=== PATIENT | female | born 1995 | race Caucasian/White ===

== ENCOUNTER 2018-03-28 04:11 | Emergency (ER) | payer MEDICAID, SELFPAY ==
[2018-03-28 04:14] VITALS: BP 157/97; PULSE 70; RESP 18; TEMP 36.2; O2SAT 96
[2018-03-28 04:24] LABS: Bilirubin Negative (Negative); Blood Moderate (Negative); Clarity Sl Cloudy; Glucose Negative (Negative); Ketones Negative (Negative); Leukocyte Esterase Negative (Negative); Nitrite Negative (Negative); Specific Gravity >= 1.030 (1.005-1.025); Urobilinogen 0.2 EU/dL (Up TO 0.2)
--- NOTE | 2018-03-28 04:27 | W.ED.GENAD ---
Discharge Plan Disposition Patient Disposition: HOME Condition: Improving Discharge Details Chief Complaint: Nausea/Vomit/Diar Clinical Impression: Nausea and vomiting, Abdominal pain, epigastric ED Provider: Diogenes Soto [place] Meds and New Rx's Prescriptions: New sucralfate 1 gram tablet 1 gm PO QID Qty: 40 RF: 0 famotidine [Pepcid] 40 mg tablet 40 mg PO BID Qty: 20 RF: 0 ondansetron 4 mg tablet,disintegrating 4 mg PO QID PRN (Reason: nausea and vomiting) Qty: 20 RF: 0 Discharge Instructions Instructions: Acute Nausea and Vomiting (ED), Epigastric Pain (ED) Additional Instructions: Repeat laboratory studies continue to look good. White count has come down. Symptoms may be consistent with gastritis. You should stick with a clear liquid/bland diet. Avoid caffeine and tobacco. Medications as prescribed. Follow-up with primary care in 1 week. Return to ED if fever, worsening pain, persistent vomiting, bloody vomit, other concerns. Referrals: Primary Care Provider [Outside] Medical Decision Making Patient here with epigastric abdominal pain, nausea and vomiting. She is minimally tender in the epigastric region. There is no RUQ tenderness or guarding. Reports negative workup on Tuesday at [facility]. We have called to get those records. Will place IV and recheck laboratory studies. Will give Phenergan and Pepcid here. Hold off on pain medications. Records from [facility] obtain. Labs showed a leukocytosis only. They were otherwise unremarkable. CT scan was normal. She was discharged with prescriptions for Zofran and Percocet for undifferentiated abdominal pain, nausea and vomiting. Repeat laboratory studies tonight remain unremarkable. Her leukocytosis has come down and is now 14. Potassium is slightly low. She has received Phenergan and Pepcid and has been sleeping. When awakened states she still has nausea and pain. I have told her given her previous negative workup and unremarkable repeat labs as well as where her pain is with the associated nausea and vomiting is likely related to gastritis type symptoms. She is a smoker and does drink a lot of caffeine. I will give her some Carafate and reevaluate. Was sleeping and woke up with dry heaves again. Pain is gone. Given Zofran and now doing better but still with some dry heaves but asking for discharge. Will send out with prescriptions for Zofran, Pepcid and Carafate presuming possible gastritis. Will follow up with PCP. Return to ED if worse, unable to stop vomiting. Medical Records Medical records reviewed: Yes I reviewed the patient's medical records. Lab Data Lab results reviewed: Yes I reviewed the patient's lab results. HPI General Mode of arrival: ambulatory. Date/Time Provider Initiated Documentation: 03/28/18 04:17. Limitations to Documentation: no limitations. Information obtained by: patient and old records reviewed. HPI Narrative: Patient presents to ED with complaints of upper abdominal pain, nausea, vomiting that woke her around 2 AM. She reports symptoms started on Tuesday and she was seen at [facility]. She reports having labs and CAT scan done with negative results. She was given Zofran and Percocet which she has used over the weekend. She is now down here because of a class that she is taking related to work. She reports the pain and nausea is better during the day but worse at night. Eating and drinking does not change the pain. She had diarrhea which has since resolved over the weekend. There is no hematemesis or coffee-ground emesis. Pain does not radiate anywhere. She cannot describe the pain for me. She denies fever. She was unable to sleep and came here for evaluation. Related Data Home Medications Medication Instructions Recorded Confirmed famotidine [Pepcid] 40 mg PO BID #20 tab 03/28/18 ondansetron 4 mg PO QID PRN #20 tab 03/28/18 sucralfate 1 gm PO QID #40 tab 03/28/18 Previous Rx's Medication Instructions Recorded famotidine [Pepcid] 40 mg PO BID #20 tab 03/28/18 ondansetron 4 mg PO QID PRN #20 tab 03/28/18 sucralfate 1 gm PO QID #40 tab 03/28/18 Allergies Allergy/AdvReac Type Severity Reaction Status Date / Time No Known Allergies Allergy Unverified 03/28/18 04:20 General Stated Complaint: Nausea/Vomit/Diar MAURO: 3 Review of Systems Constitutional Denies chills, Denies fever(s), Denies headache(s) and Denies weakness Eyes Denies eye discharge and Denies eye pain ENT Denies otalgia, Denies headache(s), Denies neck pain and Denies sore throat Cardiovascular Denies chest pain, Denies syncope, Denies edema, Denies palpitations and Denies dyspnea Respiratory Denies cough and Denies dyspnea Gastrointestinal Reports abdominal pain, Denies coffee ground emesis, Denies diarrhea, Reports nausea, Reports vomiting and Denies hematemesis Genitourinary Denies hematuria, Denies dysuria and Denies pelvic pain Musculoskeletal Denies back pain, Denies myalgias, Denies arthralgias, Denies neck pain and Denies numbness Integumentary/Breasts Denies rash Neurologic Denies syncope, Denies headache(s), Denies focal weakness, Denies numbness and Denies weakness Endocrine Denies palpitations [facility] Social History Smoking/Tobacco Use Status: Current every day Exam Const General: cooperative and uncomfortable Nutritional Appearance: overweight Orientation: alert and oriented x3 HENMT Head: normocephalic and atraumatic Mouth: moist mucous membranes Eyes Sclera: sclerae normal Neck Neck: normal visual inspection, trachea midline and supple Resp Effort & Inspection: normal respiratory effort Auscultation: clear to auscultation bilaterally Cardio Rate: regular rate Rhythm: regular rhythm Heart Sounds: S1 normal and S2 normal GI Inspection: normal to inspection Palpation: soft, not firm, no guarding and tender in the epigastrum (mild); not in the RUQ and Malave's sign negative Auscultation: normal bowel sounds Skin General skin exam: no rashes or lesions noted Neuro General: alert, oriented x3, gait normal, no focal motor deficits and CN's II-XI intact bilaterally Extrem General: normal to inspection, full ROM and no clubbing, cyanosis or edema Course Vital Signs Temperature 97.2 F L 03/28/18 04:14 Pulse 70 03/28/18 04:14 Respiratory Rate 18 03/28/18 04:14 Blood Pressure 157/97 H 03/28/18 04:14 Pulse Oximetry 96 03/28/18 04:14 Temperature 97.2 F L 03/28/18 04:14 Temperature Source Skin 03/28/18 04:14 Pulse 70 03/28/18 04:14 Respiratory Rate 18 03/28/18 04:14 Respiratory Effort Non-Labored 03/28/18 04:19 Blood Pressure 157/97 H 03/28/18 04:14 Pulse Oximetry 96 03/28/18 04:14 Oxygen Delivery Method Room Air 03/28/18 04:14 Oxygen Flow Rate 0 03/28/18 04:14 Lab/Test Results Lab/Test Results: Laboratory Tests Range/Units 03/28/18 04:17 Urine Color (Yellow) Yellow Urine Clarity Sl cloudy Urine pH (5-8) 6.0 Ur Specific [place] (1.005-1.025) >= 1.030 H Urine Protein (Negative) mg/dL Negative Urine Ketones (Negative) mg/dL Negative Urine Blood (Negative) Moderate H Urine Nitrite (Negative) Negative Urine Bilirubin (Negative) Negative Urine Urobilinogen (Up TO 0.2) EU/dL 0.2 Ur Leukocyte Esterase (Negative) Negative Urine Glucose (Negative) mg/dL Negative
[2018-03-28 04:31] LABS: WBC 0-2 HPF (0-5)
[2018-03-28 04:32] LABS: Bacteria Moderate HPF (Negative); C & S Indicated? No/Sq. Contamination; Casts Negative LPF (Negative); Crystals Negative HPF (Negative); Epithelial Cells Many HPF (Negative); Mucus Negative (Negative); Other Cells Rare Yeast (Negative)
[2018-03-28] MEDS: Normal Saline 1,000 ML 1000 ML IV (04:35)
--- NOTE | 2018-03-28 04:36 | ED.GENADUL_ITS ---
Discharge Plan Disposition Patient Disposition: HOME Condition: Improving Discharge Details Chief Complaint: Nausea/Vomit/Diar Clinical Impression: Nausea and vomiting, Abdominal pain, epigastric ED Provider: Diogenes Soto [place] Meds and New Rx's Prescriptions: New sucralfate 1 gram tablet 1 gm PO QID Qty: 40 RF: 0 famotidine [Pepcid] 40 mg tablet 40 mg PO BID Qty: 20 RF: 0 ondansetron 4 mg tablet,disintegrating 4 mg PO QID PRN (Reason: nausea and vomiting) Qty: 20 RF: 0 Discharge Instructions Instructions: Acute Nausea and Vomiting (ED), Epigastric Pain (ED) Additional Instructions: Repeat laboratory studies continue to look good. White count has come down. Symptoms may be consistent with gastritis. You should stick with a clear liquid /bland diet. Avoid caffeine and tobacco. Medications as prescribed. Follow- up with primary care in 1 week. Return to ED if fever, worsening pain, persistent vomiting, bloody vomit, other concerns. Referrals: Primary Care Provider [Outside] Medical Decision Making Patient here with epigastric abdominal pain, nausea and vomiting. She is minimally tender in the epigastric region. There is no RUQ tenderness or guarding. Reports negative workup on Tuesday at [facility]. We have called to get those records. Will place IV and recheck laboratory studies. Will give Phenergan and Pepcid here. Hold off on pain medications. Records from [facility] obtain. Labs showed a leukocytosis only. They were otherwise unremarkable. CT scan was normal. She was discharged with prescriptions for Zofran and Percocet for undifferentiated abdominal pain, nausea and vomiting. Repeat laboratory studies tonight remain unremarkable. Her leukocytosis has come down and is now 14. Potassium is slightly low. She has received Phenergan and Pepcid and has been sleeping. When awakened states she still has nausea and pain. I have told her given her previous negative workup and unremarkable repeat labs as well as where her pain is with the associated nausea and vomiting is likely related to gastritis type symptoms. She is a smoker and does drink a lot of caffeine. I will give her some Carafate and reevaluate. Was sleeping and woke up with dry heaves again. Pain is gone. Given Zofran and now doing better but still with some dry heaves but asking for discharge. Will send out with prescriptions for Zofran, Pepcid and Carafate presuming possible gastritis. Will follow up with PCP. Return to ED if worse, unable to stop vomiting. Medical Records Medical records reviewed: Yes I reviewed the patient's medical records. Lab Data Lab results reviewed: Yes I reviewed the patient's lab results. HPI General Mode of arrival: ambulatory . Date/Time Provider Initiated Documentation: 03/28/18 04:17 . Limitations to Documentation: no limitations . Information obtained by: patient and old records reviewed . HPI Narrative: Patient presents to ED with complaints of upper abdominal pain, nausea, vomiting that woke her around 2 AM. She reports symptoms started on Tuesday and she was seen at [facility]. She reports having labs and CAT scan done with negative results. She was given Zofran and Percocet which she has used over the weekend. She is now down here because of a class that she is taking related to work. She reports the pain and nausea is better during the day but worse at night. Eating and drinking does not change the pain. She had diarrhea which has since resolved over the weekend. There is no hematemesis or coffee-ground emesis. Pain does not radiate anywhere. She cannot describe the pain for me. She denies fever. She was unable to sleep and came here for evaluation. Related Data Home Medications Medication Instructions Recorded Confirmed famotidine [Pepcid] 40 mg PO BID #20 tab 03/28/18 ondansetron 4 mg PO QID PRN #20 tab 03/28/18 sucralfate 1 gm PO QID #40 tab 03/28/18 Previous Rx's Medication Instructions Recorded famotidine [Pepcid] 40 mg PO BID #20 tab 03/28/18 ondansetron 4 mg PO QID PRN #20 tab 03/28/18 sucralfate 1 gm PO QID #40 tab 03/28/18 Allergies Allergy/AdvReac Type Severity Reaction Status Date / Time No Known Allergies Allergy Unverified 03/28/18 04:20 General Stated Complaint: Nausea/Vomit/Diar MAURO: 3 Review of Systems Constitutional Denies chills, Denies fever(s), Denies headache(s) and Denies weakness Eyes Denies eye discharge and Denies eye pain ENT Denies otalgia, Denies headache(s), Denies neck pain and Denies sore throat Cardiovascular Denies chest pain, Denies syncope, Denies edema, Denies palpitations and Denies dyspnea Respiratory Denies cough and Denies dyspnea Gastrointestinal Reports abdominal pain, Denies coffee ground emesis, Denies diarrhea, Reports nausea, Reports vomiting and Denies hematemesis Genitourinary Denies hematuria, Denies dysuria and Denies pelvic pain Musculoskeletal Denies back pain, Denies myalgias, Denies arthralgias, Denies neck pain and Denies numbness Integumentary/Breasts Denies rash Neurologic Denies syncope, Denies headache(s), Denies focal weakness, Denies numbness and Denies weakness Endocrine Denies palpitations [facility] Social History Smoking/Tobacco Use Status: Current every day Exam Const General: cooperative and uncomfortable Nutritional Appearance: overweight Orientation: alert and oriented x3 HENMT Head: normocephalic and atraumatic Mouth: moist mucous membranes Eyes Sclera: sclerae normal Neck Neck: normal visual inspection, trachea midline and supple Resp Effort & Inspection: normal respiratory effort Auscultation: clear to auscultation bilaterally Cardio Rate: regular rate Rhythm: regular rhythm Heart Sounds: S1 normal and S2 normal GI Inspection: normal to inspection Palpation: soft, not firm, no guarding and tender in the epigastrum (mild); not in the RUQ and Malave's sign negative Auscultation: normal bowel sounds Skin General skin exam: no rashes or lesions noted Neuro General: alert, oriented x3, gait normal, no focal motor deficits and CN's II- XI intact bilaterally Extrem General: normal to inspection, full ROM and no clubbing, cyanosis or edema Course Vital Signs Temperature 97.2 F L 03/28/18 04:14 Pulse 70 03/28/18 04:14 Respiratory Rate 18 03/28/18 04:14 Blood Pressure 157/97 H 03/28/18 04:14 Pulse Oximetry 96 03/28/18 04:14 Temperature 97.2 F L 03/28/18 04:14 Temperature Source Skin 03/28/18 04:14 Pulse 70 03/28/18 04:14 Respiratory Rate 18 03/28/18 04:14 Respiratory Effort Non-Labored 03/28/18 04:19 Blood Pressure 157/97 H 03/28/18 04:14 Pulse Oximetry 96 03/28/18 04:14 Oxygen Delivery Method Room Air 03/28/18 04:14 Oxygen Flow Rate 0 03/28/18 04:14 Lab/Test Results Lab/Test Results: Laboratory Tests Range/Units 03/28/18 04:17 Urine Color (Yellow) Yellow Urine Clarity Sl cloudy Urine pH (5-8) 6.0 Ur Specific [place] (1.005-1.025) >= 1.030 H Urine Protein (Negative) mg/dL Negative Urine Ketones (Negative) mg/dL Negative Urine Blood (Negative) Moderate H Urine Nitrite (Negative) Negative Urine Bilirubin (Negative) Negative Urine Urobilinogen (Up TO 0.2) EU/dL 0.2 Ur Leukocyte Esterase (Negative) Negative Urine Glucose (Negative) mg/dL Negative
[2018-03-28 04:41] LABS: Abs Immature Grans 0.04 k/cumm (0.0-0.09); Absolute Monocyte Count 0.87 k/cumm (0.11-0.7); Basophils % 0.1; Eosinophils % 0.6; HCT 40.5 % (36.0-46.0); HGB 14.4 g/dL (12.0-15.5); Immature Grans % 0.3; Lymphocytes % 14.5; Mean Corp. HGB Concentration 35.6 g/dL (32.0-36.0); Mean Corpuscular Hemoglobin 31.5 pg (27.0-33.0); Mean Corpuscular Volume 88.6 fL (80-95); Mean Platelet Volume 9.3 fL (8.0-11.0); Monocytes % 6.2; Neutrophils % 78.3; Platelet Count 354 x1000/uL (130-400); RBC 4.57 m/cumm (4.00-5.20); RBC Distribution Width 12.1 % (11.7-14.6); White Blood Cell Count 14.09 k/cumm (4.4-10.8)
[2018-03-28 04:42] LABS: Absolute Basophil Count 0.01 k/cumm (0.0-0.2); Absolute Eosinophil Count 0.08 k/cumm (0.0-0.7); Absolute Lymphocyte Count 2.04 k/cumm (1.2-3.4); Absolute Neutrophil Count 11.03 k/cumm (1.2-6.7)
[2018-03-28] MEDS: FAMOTIDINE 20 MG/50 ML BAG 200 MG IVPB (04:49)
[2018-03-28 04:54] LABS: ALT 62 U/L (12-78); AST 20 U/L (15-37); Alkaline Phosphatase 71 U/L (46-116); Anion Gap 11.3 mmol/L (3-11); BUN 13 mg/dL (7-18); Bilirubin, Total 0.6 mg/dL (0.2-1.0); CO2 26.7 mmol/L (21.0-32.0); CREATININE 0.89 mg/dL (0.55-1.02); Chloride 101 mmol/L (98-107); Glucose 97 mg/dL (70-100); Lipase 78 U/L (73-393); Potassium 3.4 mmol/L (3.5-5.1); Sodium 139 mmol/L (136-145); Total Protein 7.2 g/dL (6.4-8.2)
[2018-03-28] MEDS: Sucralfate 1 GM TAB PO (05:30)
[2018-03-28 06:36] VITALS: BP 130/68; PULSE 80; RESP 18; TEMP 36.7; O2SAT 99
[2018-03-28] MEDS: Ondansetron 4 MG/2 ML VIAL IVP (06:43)
[2018-03-28] MEDS: Ondansetron O.D.T. 4 MG TABEF PO (07:25)
[2018-03-28 07:30] VITALS: BP 130/98; PULSE 71; RESP 16; TEMP 36.7; O2SAT 97
== END 2018-03-28 07:35 | disposition home or self-care (01) ==
PROVIDERS: Emergency Provider Emergency Medicine
DX: R11.2 Nausea with vomiting, unspecified (principal); R10.13 Epigastric pain
CPT/HCPCS: 36415; 80053; 81025; 83690; 96361; 96374; 96375; 99284; 81003; 81015; 85025

== ENCOUNTER 2018-07-31 10:21 | Outpatient (REF) | payer MEDICAID, SELFPAY | END 2018-07-31 10:41 | LOC: LBN 10:21 | PROVIDERS: Visit Provider Urology | DX: R35.0 Frequency of micturition (principal) | CPT/HCPCS: 87086 ==

== ENCOUNTER 2021-09-07 08:57 | Emergency (ER) | payer BC, SELFPAY ==
--- NOTE | 2021-09-07 09:00 | RT.EKG_ITS ---
APPROVED REPORT Exam: Resting ECG Reason for Exam: chest pain Patient Location: E HR:97 bpm ECG Measurements Heart Rate 97 AXIS [place] 141 P 58 QRSd 86 QRS 71 QT 338 T 5 QTc 429 Conclusion Sinus rhythm...normal P axis, V-rate 60- 99
[2021-09-07 09:06] VITALS: BP 136/84; PULSE 108; RESP 18; TEMP 36.8; O2SAT 100
--- NOTE | 2021-09-07 09:15 | DI.US_ITS ---
Exam(s) US LOWER EXTREMITY VENOUS LT EXAM: US LOWER EXTREMITY VENOUS LT CLINICAL HISTORY: left calf pain, swelling TECHNIQUE: Left lower extremity venous ultrasound performed using grayscale, color-flow, and spectra l Doppler analysis. COMPARISON: No exams were available for comparison FINDINGS: The left common femoral, femoral and popliteal veins demonstrate normal compressibility, augmentation , and color Doppler. The posterior tibial veins are patent. The saphenofemoral junction is unremarka ble. There is no evidence of a Brewer cyst. The soft tissues are unremarkable. IMPRESSION: No DVT. DATA REPOSITORY:
--- NOTE | 2021-09-07 09:24 | W.ED.GENAD ---
Discharge Plan Disposition Patient Disposition: HOME Condition: Stable Discharge Details Clinical Impression: Swelling of left lower extremity, Calf pain Primary Care Provider: Ayaz Rizo ED Provider: Kvng Flores Home Meds and New Rx's Prescriptions: Continued dextroamphetamine-amphetamine 20 mg tablet 20 mg PO BID MDD 40mg Qty: 56 0RF Rx Instructions: administer doses at least 4-6 hours apart lamotrigine [Lamictal] 25 mg tablet 50 mg PO DAILY Qty: 60 0RF ziprasidone HCl 20 mg capsule 20 mg PO BID Qty: 60 1RF Rx Instructions: give with food (meal/snack) sertraline 100 mg tablet 100 mg PO DAILY Qty: 90 3RF imipramine HCl 50 mg tablet 50 mg PO BID-TID Qty: 90 0RF Discharge Instructions Additional Instructions: your ultrasound did not show concerning findings and your blood work also did not show any concerning findings follow up with your psychiatrist as soon as possible if you feel more ill, have severe worsening pain or fevers return to the emergency department Medical Decision Making 25 yo female with hx of add, mood disorder, interstital cystitis, comes in with complaints of a raspy voice and also left leg feels swollen. SHe also has noted intermittent left anterior chest pain for 3 days that comes and goes. She went to [place] for a week and got back yesterday. She went to work today and was told to come here when she got to work. She arrives stable speaking in full sentences in no distress. She denies fevers, chills, dyspnea, headache. She states she started ziprasidone a week or so ago and lamotrigine a month ago. She denies any rashes. She has no noticeable swelling of her leg on exam but has tenderness to the left calf. No abdominal tenderness, no visible abnormalities of the chest or palpable deformities. Clear lungs, normal posterior pharynx, midline uvula, no pain over the hyoid or neck swelling or restricted neck movement. Given the recent travel and leg pain will obtain u/s to evaluate for dvt. Her chest pain seems musculoskeleta, doesn't radiate and not associated with movement or exertion so doubt acs, heart score is less than 3, will obtain troponin. Will also check d dimer as her HR is 108. No findings on exam to suggest rpa, epiglotitis or pharyngitis and no mucous membrane lesions to suggest sjs/ten. Given lack of rash and reassuring exam doubt anaphylaxis. pt's labs and u/s unremarkable and she remains stable, no other changes on exam. Discussed with her results and discussed lamotrigine which she feels is causing her symptoms. I advised she needs to discuss stopping and starting a new med like this with her psychiatrist as there is no evidence of anaphylaxis or even mild allergic reaction. Return precautions given Differential Diagnosis Differential Diagnosis: dvt, anxiety, nstemi Medical Records Medical records reviewed: Yes I reviewed the patient's medical records. Lab Data Lab results reviewed: Yes I reviewed the patient's lab results. ECG Data Attestation: I personally reviewed and interpreted this ECG (s) as follows: Prior ECG tracings: not available for review Interpretation: sinus rhythm, rate of 97, no acute st t wave ischemic findings HPI General Mode of arrival: ambulatory. Date/Time Provider Initiated Documentation: 09/07/21 08:59. Limitations to Documentation: no limitations. Information obtained by: patient. History of Present Illness 25 year old F presents to the emergency department with the chief complaint of left swelling, described as moderate, Patient started experiencing this day(s) (3) and it has been constant. improves with No relieving factors improve symptom(s), No exacerbating factors reported . Patient notes chest pain. Patient did receive the following treatments prior to arrival, none Related Data Home Medications Medication Instructions Recorded Confirmed sertraline 100 mg tablet 100 mg PO DAILY #90 tab 07/17/21 09/07/21 dextroamphetamine-amphetamine 20 20 mg PO BID #56 tab MDD 40mg 08/10/21 09/07/21 mg tablet imipramine HCl 50 mg tablet 50 mg PO BID-TID #90 tab 08/24/21 09/07/21 lamotrigine 25 mg tablet (Lamictal) 50 mg PO DAILY #60 tab 08/27/21 09/07/21 ziprasidone HCl 20 mg capsule 20 mg PO BID #60 cap 08/27/21 09/07/21 Previous Rx's Medication Instructions Recorded sertraline 100 mg tablet 100 mg PO DAILY #90 tab 07/17/21 dextroamphetamine-amphetamine 20 20 mg PO BID #56 tab MDD 40mg 08/10/21 mg tablet imipramine HCl 50 mg tablet 50 mg PO BID-TID #90 tab 08/24/21 lamotrigine 25 mg tablet (Lamictal) 50 mg PO DAILY #60 tab 08/27/21 ziprasidone HCl 20 mg capsule 20 mg PO BID #60 cap 08/27/21 Allergies Allergy/AdvReac Type Severity Reaction Status Date / Time No Known Allergies Allergy Verified 09/07/21 09:11 General Stated Complaint: Allergic MAURO: 3 Review of Systems All systems reviewed & are unremarkable except as noted in HPI and below Constitutional Constitutional: Denies chills, Denies fever(s) and Denies weakness Eyes Eyes: Denies loss of vision Cardiovascular Cardiovascular: Denies dyspnea Respiratory Respiratory: Denies cough and Denies dyspnea Gastrointestinal Gastrointestinal: Denies abdominal pain, Denies nausea and Denies vomiting Genitourinary Genitourinary: Denies dysuria Musculoskeletal Musculoskeletal: Denies joint swelling Integumentary/Breasts Skin/Breast: Denies rash Neurologic Neurologic: Denies loss of vision and Denies weakness PFSH All Active Problems (Updated 09/07/21 @ 10:46 by Kvng Flores MD) Swelling of left lower extremity (Acute) Calf pain (Acute) Mood disorder (Acute) ADD (attention deficit disorder) (Acute) Anxiety (Chronic) Tobacco abuse (Acute) Currently 1/2 daily Bladder dysfunction (Acute) over active Interstitial cystitis (Acute) Medical History Anxiety Restlessness Family History (Updated 03/09/21 @ 10:22 by Gilda Rabago) Mother Diabetes Hyperlipidemia Father Substance use disorder Sister No problems noted. Maternal Grandfather , 60 Heart disease Paternal Grandfather No problems noted. Maternal Grandmother , 73 Urinary bladder cancer Paternal Grandmother No problems noted. Social History (Updated 03/09/21 @ 10:20 by Gilda Rabago) Smoking/Tobacco Use Status: Current every day Tobacco Type: cigarettes Tobacco: How many years used: 10 Quit status: not considering quitting Second Hand Exposure: Yes Smoking risk assessment performed?: Yes Alcohol Intake: current Alcohol Intake frequency: holidays/special occasions only Alcohol type: beer, wine and hard liquor Drug use: Occasionally Substance use type: marijuana Caregiver/Support person: No Household members: family Housing: house Communication Needs: None Do you need help understanding health information?: Never Pets and animals: Yes Pets and animals: cat(s) and dog(s) Sexually active: Yes Do you think of yourself as: straight/heterosexual Current gender identity: female What is your relationship status?: never How often do you talk on the phone with friends or family?: decline to answer How often do you get together with friends or relatives?: decline to answer How often do you attend mormonism or holiness services?: decline to answer Do you belong to any clubs or organized social groups?: decline to answer Panel score (0-1 are the most socially isolated patients): 0 What type of physical activity do you participate in: none Duration: < 15 minutes/day Special graeme needs: No Seatbelt use: always Helmet use: Yes Helmet use: always Drive 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 Do you feel safe in your relationship?: Yes Exam Const General: no acute distress Orientation: alert HENMT Head: normal to inspection Ears: external ears normal General nose exam: external nose normal Mouth: moist mucous membranes Eyes General: appearance normal, both eyes and all related structures Neck Neck: normal visual inspection Resp Effort & Inspection: normal respiratory effort and able to speak in complete sentences Cardio Rate: regular rate Skin General skin exam: no rashes or lesions noted Neuro General: patient alert and patient oriented x3 Extrem General: normal to inspection Psych Mental Status: mental status grossly normal Course Vital Signs Vital signs: Vital Signs Temperature 36.8 C 09/07/21 09:06 Pulse 108 H 09/07/21 09:06 Respiratory Rate 18 09/07/21 09:06 Blood Pressure 136/84 09/07/21 09:06 Pulse Oximetry 100 09/07/21 09:06 Temperature 36.8 C 09/07/21 09:06 Temperature Source Skin 09/07/21 09:06 Pulse 108 H 09/07/21 09:06 Respiratory Rate 18 09/07/21 09:06 Respiratory Effort 09/07/21 09:17 Respiratory Pattern Normal 09/07/21 09:17 Blood Pressure 136/84 09/07/21 09:06 Blood Pressure Position Sitting 09/07/21 09:06 Pulse Oximetry 100 09/07/21 09:06 Oxygen Delivery Method Room Air 09/07/21 09:06 Oxygen Flow Rate 0 09/07/21 09:06 Pain Level 8 09/07/21 09:06 PAWSS Have you Been Recently Intoxicated or Drunk Within the Last 30 days?: No Have you Ever Experienced Previous Episodes of Alcohol Withdrawal?: No Have you ever Experienced Withdrawal Seizures?: No Have you ever Experienced Delirium Tremens(DT)s?: No Have you ever undergone Alcohol Rehabilitation Treatment (i.e, inpt ot outpatient treatment programs)?: No Have you ever Experienced Blackouts?: No Have you ever Combined Alcohol with other Downers within the last 90 days?: No Have you ever Combined Alcohol with any other Substance of Abuse during the last 90 days?: No Positive Blood Alcohol level on Presentation? [PCS.BAL]: No Evidence of Increased Autonomic Activity (i.e. HR>120, tremor, sweating, agitation, nausea)?: No Result: 0
[2021-09-07 09:41] LABS: Abs Immature Grans 0.06 10^3/uL (0.0-0.06); Absolute Basophil Count 0.04 10^3/uL (0.0-0.2); Absolute Eosinophil Count 0.13 10^3/uL (0.0-0.7); Absolute Lymphocyte Count 2.07 10^3/uL (1.2-3.4); Absolute Neutrophil Count 9.05 10^3/uL (1.2-6.7); Basophils % 0.3; Eosinophils % 1.1; HCT 35.3 % (36.0-46.0); HGB 11.5 g/dL (11.2-15.7); Immature Grans % 0.5; Lymphocytes % 17.2; MCH 30.7 pg (27.0-33.0); MCHC 32.6 % (32.0-36.0); MCV 94.4 fL (80-95); MPV 8.9 fL (8.0-11.0); Monocytes % 5.8; Neutrophils % 75.1; Platelet Count 291 10^3/uL (130-400); RBC 3.74 10^6/uL (3.93-5.22); RDW 13.2 % (11.7-14.6); RDW-SD 45.2 fL; WBC 12.05 10^3/uL (4.4-10.8)
[2021-09-07 09:48] LABS: Bilirubin Negative (Negative); Blood Trace-lysed (Negative); Clarity Clear (Clear); Glucose Negative (Negative); Ketones Negative (Negative); Leukocyte Esterase Negative (Negative); Nitrite Negative (Negative); Specific Gravity 1.015 (1.005-1.025); Urobilinogen 0.2 EU/dL (Up TO 0.2)
[2021-09-07 09:57] LABS: Creatine Kinase 120 U/L (26-192); Lipase 32 U/L (73-393); Magnesium 2.1 mg/dL (1.8-2.4); Troponin I < 50 ng/L (<or=60)
[2021-09-07 09:57] LABS: Bacteria Negative HPF (Negative); C & S Indicated? No; Casts Negative LPF (Negative); Crystals Negative HPF (Negative); Epithelial Cells Rare HPF (Negative); Mucus Negative (Negative); RBC 0-2 HPF (0-2); WBC Negative HPF (0-5)
[2021-09-07 10:22] LABS: D-Dimer 325 ng/mlFEU (<500)
[2021-09-07 10:46] VITALS: BP 118/67; PULSE 74; RESP 16; TEMP 36.8; O2SAT 100
== END 2021-09-07 10:56 | disposition home or self-care (01) ==
PROVIDERS: Emergency Provider Emergency Medicine; PCP Nurse Practitioner Family
DX: M79.89 Other specified soft tissue disorders (principal); M79.662 Pain in left lower leg; R07.9 Chest pain, unspecified
CPT/HCPCS: 36415; 81025; 82550; 83690; 93005; 99284; 81003; 81015; 83735; 84484; 85025; 85379; 93010; 93971; 99283

== ENCOUNTER 2021-10-06 13:58 | Emergency (ER) | payer BC, SELFPAY ==
[2021-10-06 14:03] VITALS: BP 123/70; PULSE 108; RESP 16; TEMP 36.7; O2SAT 99
[2021-10-06 14:45] LABS: Bilirubin Negative (Negative); Blood Trace-intact (Negative); Clarity Clear (Clear); Glucose Negative (Negative); Ketones Negative (Negative); Leukocyte Esterase Negative (Negative); Nitrite Negative (Negative); Specific Gravity 1.015 (1.005-1.025); Urobilinogen 0.2 EU/dL (Up TO 0.2)
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
--- NOTE | 2021-10-06 14:45 | DI.CT_ITS ---
Exam(s) CT HEAD CERVICAL SPINE WO EXAM: CT HEAD CERVICAL SPINE WO COMPARISON: No exams were available for comparison FINDINGS: CT examination of the cervical spine was performed without contrast administration. There is no evidence of acute cervical spine fracture or dislocation. Intervertebral disc spaces are well maintained. Tracheolaryngeal structures appear intact. No cervical mass or adenopathy. Noncontrast cranial CT was performed. Ventricular system is normal in appearance. No evidence of acute intracranial hemorrhage, mass effect, or midline shift. No calvarial fracture. The orbital and temporal bone structures appear intact. Visualized mastoid air cells and paranasal sinuses appear clear. IMPRESSION: No evidence of acute cervical spine injury. No evidence of acute intracranial injury. RADIATION DOSE DELIVERED: 992.42mGy.cm Total DLP 992.42mGy.cm Total DLP !Error CTDIvol DATA REPOSITORY: All CT scans at this facility are submitted to the National Radiology Data Registry (NRDR) Dose Index Registry (DIR) with the [employer] ([employer]). RADIATION OPTIMIZATION: All CT scans at this facility use at least one of these dose optimization te chniques: automated exposure control; mA and/or kV adjustment per patient size (includes targeted exa ms where dose is matched to clinical indication); or iterative reconstruction.
[2021-10-06 14:53] LABS: Bacteria Rare HPF (Negative); C & S Indicated? No; Casts Negative LPF (Negative); Crystals Negative HPF (Negative); Epithelial Cells Few HPF (Negative); Mucus Negative (Negative); RBC 0-2 HPF (0-2); WBC Negative HPF (0-5)
[2021-10-06] MEDS: Normal Saline 1,000 ML 1000 ML IV (15:36)
[2021-10-06] MEDS: MORPHine 10 MG/ML VIAL 4 MG IVP (15:36)
[2021-10-06] MEDS: Ondansetron 4 MG/2 ML VIAL IVP (15:37)
[2021-10-06 15:52] VITALS: RESP 19; O2SAT 99
[2021-10-06 16:13] LABS: Abs Immature Grans 0.03 10^3/uL (0.0-0.06); Absolute Eosinophil Count 0.12 10^3/uL (0.0-0.7); Absolute Lymphocyte Count 3.09 10^3/uL (1.2-3.4); Absolute Monocyte Count 0.75 10^3/uL (0.1-0.8); Basophils % 0.4; Eosinophils % 1.1; HCT 39.6 % (36.0-46.0); HGB 13.3 g/dL (11.2-15.7); Immature Grans % 0.3; Lymphocytes % 27.4; MCHC 33.6 % (32.0-36.0); MCV 92 fL (80-95); MPV 9.1 fL (8.0-11.0); Monocytes % 6.7; Neutrophils % 64.1; Platelet Count 321 10^3/uL (130-400); RBC 4.29 10^6/uL (3.93-5.22); RDW 12.6 % (11.7-14.6); RDW-SD 42.3 fL; WBC 11.26 10^3/uL (4.4-10.8)
[2021-10-06 16:25] LABS: ALT 30 U/L (14-59); AST 12 U/L (15-37); Albumin 3.6 g/dL (3.4-5.0); Alkaline Phosphatase 92 U/L (46-116); Anion Gap 3.9 mmol/L (3-11); BUN 14 mg/dL (7-18); Bilirubin, Total 0.1 mg/dL (0.2-1.0); CO2 32.1 mmol/L (21.0-32.0); CREATININE 0.8 mg/dL (0.55-1.02); Calcium 8.9 mg/dL (8.5-10.1); Chloride 104 mmol/L (98-107); Glucose 99 mg/dL (74-106); Potassium 3.9 mmol/L (3.5-5.1); Sodium 140 mmol/L (136-145); Total Protein 6.8 g/dL (6.4-8.2)
[2021-10-06 16:31] LABS: Absolute Basophil Count 0.05 10^3/uL (0.0-0.2); Absolute Neutrophil Count 7.22 10^3/uL (1.2-6.7)
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
[2021-10-06 17:58] VITALS: BP 120/61; PULSE 70; RESP 18; O2SAT 100
== END 2021-10-06 17:59 | disposition home or self-care (01) ==
PROVIDERS: Emergency Provider Nurse Practitioner Family; PCP Nurse Practitioner Family
DX: S16.1XXA Strain of muscle, fascia and tendon at neck level, initial encounter (principal); R10.9 Unspecified abdominal pain; V49.49XA Driver injured in collision with other motor vehicles in traffic accident, initial encounter
CPT/HCPCS: 36415; 71250; 80053; 81025; 96361; 96374; 96375; 99284; 70450; 72125; 74176; 81003; 81015; 85025; J2270; J2405

== ENCOUNTER 2022-01-06 10:16 | Outpatient (CLI) | payer BC, SELFPAY ==
--- NOTE | 2022-01-06 10:15 | RT.EKG_ITS ---
APPROVED REPORT Exam: Resting ECG Reason for Exam: chest pain Patient Location: O HR:98 bpm ECG Measurements Heart Rate 98 AXIS WV 134 P 71 QRSd 91 QRS 81 QT 355 T 14 QTc 454 Conclusion Sinus rhythm...normal P axis, V-rate 50- 99 Normal Electrocardiogram
== END 2022-01-06 10:17 | disposition home or self-care (01) ==
LOC: DI.CM 10:17
PROVIDERS: PCP Nurse Practitioner Family; Visit Provider Nurse Practitioner Family
DX: R07.9 Chest pain, unspecified (principal)
CPT/HCPCS: 93010

== ENCOUNTER 2022-02-12 16:30 | Outpatient (REF) | payer BC, SELFPAY ==
--- NOTE | 2022-02-12 15:30 | PAPFT_PTH ---
PATIENT: Zina Hartmann LOC: [facility] U#:[id number] AGE/SX: 26/F ROOM: RE02/12/[address]: Charlette Cardona MD : [id number] BED: DIS: 02/12/2022 SPEC #: [id number] RECD: 02/12/22 17:29 STATUS: MELLISA REMaddie #: [id number] JEREMIAH: 02/12/22 15:[address]: Charlette Cardona DEPT: [facility] Cytology RECD BY: Kimmie Parker ENTERED: 02/12/22 17:30 SP TYPE: PAPFT OTHR DR: Ayaz Rizo, H[place] Tissues: 1 - CX/ENDOCX FOR PAP SMEARS Procedures: PAP THIN PREP/UVM Screening Comments: [id number] (CHLAMYDIA/GC)
[2022-02-15 15:41] LABS: Chlamydia Result Negative (Negative); GC Result Negative (Negative)
== END 2022-02-12 16:31 | disposition home or self-care (01) ==
LOC: LBN 16:30
PROVIDERS: PCP Nurse Practitioner Family; Visit Provider Obstetrics & Gynecology
DX: Z12.4 Encounter for screening for malignant neoplasm of cervix (principal); Z11.3 Encounter for screening for infections with a predominantly sexual mode of transmission
CPT/HCPCS: 87491; 87591; 88142; 87624

== ENCOUNTER 2022-03-15 13:43 | Outpatient (REF) | payer BC, SELFPAY ==
[2022-03-17 11:28] LABS: COVID-19 RT-PCR UVMMC Result Negative (Negative)
== END 2022-03-15 13:44 | disposition home or self-care (01) ==
LOC: LBN 13:43
PROVIDERS: Visit Provider Nurse Practitioner Family
DX: Z20.822 Contact with and (suspected) exposure to COVID-19 (principal)
CPT/HCPCS: U0003

== ENCOUNTER 2022-05-06 02:22 | Outpatient (CLI) | payer BC, SELFPAY ==
[2022-05-06 16:54] LABS: HGB 14.8 g/dL (11.2-15.7); MCH 30.6 pg (27.0-33.0); MCHC 33.6 % (32.0-36.0); MCV 91 fL (80-95); MPV 9.1 fL (8.0-11.0); Platelet Count 403 10^3/uL (130-400); RBC 4.83 10^6/uL (3.93-5.22); RDW 11.9 % (11.7-14.6); RDW-SD 39.8 fL; WBC 15.72 10^3/uL (4.4-10.8)
[2022-05-06 17:06] LABS: Hemoglobin A1C 5.2 % (<5.7)
[2022-05-06 17:50] LABS: Calculated LDL 125 mg/dL (<100); Cholesterol 212 mg/dL (<200); HDL Cholesterol 77 mg/dL (40-60); TSH (W/Ref FT4) 0.53 uIU/mL (0.36-3.74); Triglyceride 54 mg/dL (<150)
== END 2022-05-06 02:23 | disposition home or self-care (01) ==
PROVIDERS: PCP Nurse Practitioner Family; Visit Provider Nurse Practitioner Family
DX: Z13.1 Encounter for screening for diabetes mellitus (principal); Z13.220 Encounter for screening for lipoid disorders; R53.83 Other fatigue
CPT/HCPCS: 36415; 80061; 85027; 83036; 84443

== ENCOUNTER → 2022-05-07 10:35 | Outpatient (CLI) | payer BC, SELFPAY ==
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
== END ==
PROVIDERS: PCP Nurse Practitioner Family; Visit Provider Nurse Practitioner Family
DX: M54.59 Other low back pain (principal)
CPT/HCPCS: 72110

== ENCOUNTER 2022-08-18 16:48 | Outpatient (CLI) | payer BC, SELFPAY ==
[2022-08-18 16:58] LABS: Abs Immature Grans 0.01 10^3/uL (0.0-0.06); Absolute Basophil Count 0.04 10^3/uL (0.0-0.2); Absolute Eosinophil Count 0.16 10^3/uL (0.0-0.7); Basophils % 0.4; Eosinophils % 1.6; HCT 40.1 % (36.0-46.0); HGB 13.6 g/dL (11.2-15.7); Immature Grans % 0.1; Lymphocytes % 28.3; MCH 30.2 pg (27.0-33.0); MCHC 33.9 % (32.0-36.0); MCV 89 fL (80-95); MPV 9.1 fL (8.0-11.0); Monocytes % 9.1; Neutrophils % 60.5; Platelet Count 372 10^3/uL (130-400); RBC 4.51 10^6/uL (3.93-5.22); RDW-SD 38.5 fL; WBC 9.91 10^3/uL (4.4-10.8)
[2022-08-18 17:10] LABS: *AMPHETAMINES SCREEN URINE Negative (Negative); *BARBITURATES SCREEN URINE Negative (Negative); *BENZODIAZEPINES SCREEN URINE Negative (Negative); Cannabinoids THC Positive (Negative); Cocaine Screen,Urine Negative (Negative); METHADONE URINE SCREEN Negative (Negative); OPIATES URINE SCREEN Negative (Negative)
[2022-08-18 17:11] LABS: Tricyclic Antidepressants Negative (Negative)
[2022-08-18 17:38] LABS: ALT 40 U/L (14-59); AST 18 U/L (15-37); Albumin 4.1 g/dL (3.4-5.0); Alkaline Phosphatase 63 U/L (46-116); Anion Gap 10.1 mmol/L (3-11); BUN 21 mg/dL (7-18); Bilirubin, Total 0.3 mg/dL (0.2-1.0); CO2 27.9 mmol/L (21.0-32.0); CREATININE 0.9 mg/dL (0.55-1.02); Calcium 9.3 mg/dL (8.5-10.1); Chloride 103 mmol/L (98-107); Estimated GFR 90.42 (mL/min/1.73m2); Glucose 83 mg/dL (74-106); Sodium 141 mmol/L (136-145); TSH 1.94 uIU/mL (0.36-3.74); Total Protein 7.1 g/dL (6.4-8.2); Vitamin B12 538 pg/mL (193-986)
[2022-08-18 18:09] LABS: Vitamin D 25 Total 31.3 ng/mL (30-100)
[2022-08-25 21:26] LABS: Fentanyl Interpretation Positive.; Fentanyl by LC-MS/MS Not Detected; Norfentanyl by LC-MS/MS 6.2 ng/mL
== END 2022-08-18 16:49 | disposition home or self-care (01) ==
LOC: LBO 16:48
PROVIDERS: PCP Nurse Practitioner Family; Visit Provider Nurse Practitioner Psychiatric/Mental Health
DX: R41.82 Altered mental status, unspecified (principal)
CPT/HCPCS: 36415; 80053; 80307; 82306; 80354; 82607; 84443; 85025

== ENCOUNTER 2022-09-23 08:20 | Emergency (ER) | payer BC, SELFPAY ==
[2022-09-23 08:24] VITALS: BP 117/57; PULSE 90; RESP 15; TEMP 37.3; O2SAT 100
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
--- NOTE | 2022-09-23 08:44 | NUR.NOTE ---
Nursing Note: Dr Juanita Spain at pt's bedside.
--- NOTE | 2022-09-23 08:45 | DI.US_ITS ---
Exam(s) US LOWER EXTREMITY VENOUS RT EXAM: US LOWER EXTREMITY VENOUS RT CLINICAL HISTORY: right leg/foot pain, r/o dvt TECHNIQUE: Grayscale, color, and doppler imaging of the deep venous system of the right lower extrem ity was performed. COMPARISON: US US LOWER EXTREMITY VENOUS LT from 09/07/2021 FINDINGS: There is no evidence of intraluminal thrombus and there is normal compression and augmentation demons trated within the common femoral vein, femoral vein, and popliteal vein. In the ipsilateral calf the interrogated veins also exhibit normal compression/ augmentation properti es. The ipsilateral saphenofemoral junction is patent. IMPRESSION: 1. No evidence of DVT in the right lower extremity. DATA REPOSITORY:
[2022-09-23] MEDS: Ibuprofen 600 MG TAB PO (08:56)
[2022-09-23] MEDS: Acetaminophen 500 MG TAB 1000 MG PO (08:56)
[2022-09-23] MEDS: predniSONE 20 MG TAB 40 MG PO (08:57)
--- NOTE | 2022-09-23 10:00 | DI.RAD_ITS ---
Exam(s) XR TIB/FIB RT EXAM: XR TIB/FIB RT CLINICAL HISTORY: twisted right leg, r/o fx. TECHNIQUE: 2D digital imaging was performed. COMPARISON: No exams were available for comparison FINDINGS: Two views No evidence of fracture of the tibia and fibula. No osseous lesions. No radiopaque foreign body. B one density normal. IMPRESSION: No significant osseous findings in tibia and fibula. DATA REPOSITORY: RADIATION DOSE DELIVERED:
--- NOTE | 2022-09-23 10:00 | DI.RAD_ITS ---
Exam(s) XR KNEE RT 4V AP,LAT,MARIELA,PAT EXAM: XR KNEE RT 4V AP,LAT,MARIELA,PAT CLINICAL HISTORY: running and twisted leg, r/o fx. TECHNIQUE: 2D digital imaging was performed. COMPARISON: No exams were available for comparison FINDINGS: 3 views No evidence of fracture. Small amount of increased joint fluid. No joint space narrowing. Bone den sity normal. No osseous lesions. IMPRESSION: No significant osseous findings. Small joint effusion noted. DATA REPOSITORY: RADIATION DOSE DELIVERED:
--- NOTE | 2022-09-23 10:00 | DI.RAD_ITS ---
Exam(s) XR ANKLE RT COMPLETE EXAM: XR ANKLE RT COMPLETE CLINICAL HISTORY: twisted R leg, r/o fx. TECHNIQUE: 2D digital imaging was performed. COMPARISON: No exams were available for comparison FINDINGS: 3 views No evidence of fracture or widening the ankle mortise. Talar dome unremarkable. No soft tissue swel ling noted. No evidence of osseous tarsal coalition. IMPRESSION: No significant osseous findings in the ankle. DATA REPOSITORY: RADIATION DOSE DELIVERED:
--- NOTE | 2022-09-23 10:00 | DI.RAD_ITS ---
Exam(s) XR FOOT RT COMPLETE EXAM: XR FOOT RT COMPLETE CLINICAL HISTORY: twisted R foot, r/o fx. TECHNIQUE: 2D digital imaging was performed. COMPARISON: No exams were available for comparison FINDINGS: 3 views No evidence of acute fracture or diastasis of Lisfranc joint. More lateral of the 2 sesamoid bones s ubjacent to the head of the great toe metatarsal is either bipartite asymmetrically or fractured. Co rrelation with site of tenderness recommended. Metatarsals appear intact as do the other bones foot. Articulations unremarkable. No abnormal soft tissue densities evident. IMPRESSION: Sesamoid bone finding subjacent to the great toe metatarsal head as described above. DATA REPOSITORY: RADIATION DOSE DELIVERED:
[2022-09-23 10:45] VITALS: BP 110/70; PULSE 72; RESP 16; TEMP 37.1; O2SAT 96
== END 2022-09-23 10:56 | disposition home or self-care (01) ==
PROVIDERS: Emergency Provider Physician Assistant; PCP Nurse Practitioner Family
DX: S93.401A Sprain of unspecified ligament of right ankle, initial encounter (principal); S93.601A Unspecified sprain of right foot, initial encounter; X50.1XXA Overexertion from prolonged static or awkward postures, initial encounter; Y93.02 Activity, running; L23.7 Allergic contact dermatitis due to plants, except food
CPT/HCPCS: 99284; 73564; 73590; 73610; 73630; 93971; J7512